=== PATIENT | female | born 1990 | race Caucasian/White ===

== ENCOUNTER → 2019-10-04 10:48 | Outpatient (CLI) | payer OTHER, MEDICAID, SELFPAY ==
--- NOTE | 2019-10-04 | DI.US.S_ITS ---
PROCEDURE: US OB <= 14 WEEKS FETUS INDICATIONS: SIZE AND DATES OUTSIDE/PRIOR DATING DATA: Last menstrual period (LMP): 08/11/19. LMP-based estimated date of delivery (RODERICK): 05/17/20. First dating scan (date and location): 10/04/19. Estimated date of delivery (RODERICK) from first dating scan: 05/14/20. TECHNIQUE: Real-time scanning was performed of the fetus and maternal pelvic organs, with image documentation. Endovaginal scanning was also performed to better visualize the fetus and maternal ovaries. COMPARISON: None. FINDINGS: Embryo: Early intrauterine identified. heart rate measured at 182 beats per minute. crown-rump length measures 1.7 cm corresponding to ultrasound estimated gestational age of 8 weeks 1 day. Measurement variability in dating: +/- 4 weeks by LMP, +/- 7 days by mean sac diameter (use before 6 weeks gestation if crown-rump length not able to be measured), +/- 5 days by crown-rump length (up to 8 weeks 6 days gestation), +/- 7 days by crown-rump length (up to 13 weeks 6 days gestation). Maternal organs: Right corpus luteal cyst noted. Left ovary is not visualized and cannot be evaluated. Limited images through the kidneys demonstrate no hydronephrosis. IMPRESSION: Single living intrauterine with ultrasound estimated gestational age of 8 weeks 1 day corresponding to ultrasound RODERICK of 05/14/2020. Dictated by: Cindy Dorsey MD, PhD on 10/04/2019 at 12:13 Approved by: Cindy Dorsye MD, PhD on 10/04/2019 at 12:15
== END ==
PROVIDERS: PCP Family Medicine; Referring Provider Family Medicine; Visit Provider Family Medicine
DX: Z34.91 Encounter for supervision of normal pregnancy, unspecified, first trimester (principal); Z3A.08 8 weeks gestation of pregnancy
CPT/HCPCS: 76801

== ENCOUNTER → 2019-12-30 13:30 | Outpatient (CLI) | payer OTHER, MEDICAID, SELFPAY ==
--- NOTE | 2019-12-30 | DI.US.S_ITS ---
PROCEDURE: US OB >= 14 WEEKS FETUS INDICATIONS: 20 WEEK SCAN OUTSIDE/PRIOR DATING DATA: Last menstrual period (LMP): 08/11/19. LMP-based estimated date of delivery (RODERICK): 05/17/20. First dating scan (date and location): 10/04/19. Estimated date of delivery (RODERICK) from first dating scan: 05/14/20. TECHNIQUE: Real-time scanning was performed of the fetus, with image documentation and biometric measurements. Endovaginal scanning: Not performed COMPARISON: None. FINDINGS: General: A single living intrauterine gestation is present. Presentation: Breech Placenta: Placental position is anterior, without previa. Amniotic fluid index: 11.9 cm, normal range is 5-24 cm. heart rate: 153 beats per minute. Maternal cervical canal: 4.3 cm long. Normal lower limit is 2.5 cm. biometrics: Biparietal diameter: 4.4 cm, 19 weeks, 3 days Head circumference: 17.5 cm, 20 weeks, zero day Abdominal circumference: 15.5 cm, 20 weeks, 4 days Femur length: 3.5 cm, 21 weeks, one day Estimated gestational age from initial scan: 20 weeks, 4 days. Composite gestational age from present scan: 20 weeks, 3 days Estimated weight and percentile: 375 g, 55%. Measurement variability for biometric dating: +/- 7 days from 14 weeks to 15 weeks 6 days gestation, +/- 10 days from 16 weeks to 21 weeks 6 days gestation, +/- 2 weeks from 22 weeks to 27 weeks 6 days gestation, +/- 3 weeks for 28 weeks gestation or later. weight reference: 4500 g or EFW >90/95% is considered macrosomia or large for gestational age. EFW <10% is small for gestational age. EFW 5% or less is considered intra-uterine growth restriction. Anatomic survey: Neuro: Ventricles are non-dilated at less than 10 mm. Cisterna magna is normal at 3-11 mm. Cerebellum is normal in size and morphology. Nuchal skin fold: Normal at less than 6 mm between 14-21 weeks gestational age. Face: Nose and lips, facial profile are normal. Spine: No evidence for spina bifida. Heart: 4-chambered heart is present, with normal ventricular outflow tracts. Diaphragm: Diaphragm is intact. Stomach: Left-sided stomach is present. Kidneys: No hydronephrosis. Normal is less than 5 mm in 2nd trimester, less than 7 mm in 3rd trimester. Cord: 3-vessel cord has orthotopic insertion. Bladder: Normal in size. Extremities: All 4 extremities identified. IMPRESSION: 1. Single live intrauterine with fetus in breech presentation. Normal amount of amniotic fluid. heart rate is 153 beats per minute. Normal growth. 2. Normal anatomic survey. Dictated by: Frandy Kilpatrick M.D. on 12/30/2019 at 15:50 Approved by: Frandy Kilpatrick M.D. on 12/30/2019 at 15:55
== END ==
PROVIDERS: PCP Family Medicine; Referring Provider Family Medicine; Visit Provider Family Medicine
DX: Z36.89 Encounter for other specified antenatal screening (principal); Z3A.20 20 weeks gestation of pregnancy
CPT/HCPCS: 76811

== ENCOUNTER → 2020-03-26 14:04 | Outpatient (CLI) | payer OTHER, MEDICAID, SELFPAY ==
--- NOTE | 2020-03-26 | DI.US.S_ITS ---
PROCEDURE: US OB LIMITED INDICATIONS: GROWTH OUTSIDE/PRIOR DATING DATA: Last menstrual period (LMP): 08/11/19. LMP-based estimated date of delivery (RODERICK): 05/17/20. First dating scan (date and location): 10/04/19. Estimated date of delivery (RODERICK) from first dating scan: 05/14/20. TECHNIQUE: Real-time scanning was performed of the fetus, with image documentation and biometric measurements. Endovaginal scanning: Not performed COMPARISON: None. FINDINGS: General: A single living intrauterine gestation is present. Presentation: Vertex. Placenta: Placental position is anterior, without previa. Amniotic fluid index: 16.6 cm cm, normal range is 5-24 cm. heart rate: 144 beats per minute. Maternal cervical canal: 4.2 cm long. Normal lower limit is 2.5 cm. biometrics: Biparietal diameter: 8.2 cm, correlating with approximately 32 weeks and 6 days Head circumference: 30.0 cm, correlating with approximately 33 weeks and 2 days Abdominal circumference: 28.6 cm, correlating with approximately 32 weeks and 4 days Femur length: 6.4 cm, correlating with approximately 32 weeks and 6 days Estimated gestational age from initial scan: not applicable. Composite gestational age from present scan: 32 weeks and 6 days Estimated weight and percentile: 2046 g which correlates with the 34th percentile based off gestational age. Measurement variability for biometric dating: +/- 7 days from 14 weeks to 15 weeks 6 days gestation, +/- 10 days from 16 weeks to 21 weeks 6 days gestation, +/- 2 weeks from 22 weeks to 27 weeks 6 days gestation, +/- 3 weeks for 28 weeks gestation or later. weight reference: 4500 g or EFW >90/95% is considered macrosomia or large for gestational age. EFW <10% is small for gestational age. EFW 5% or less is considered intra-uterine growth restriction. Other: No abnormalities visualized in the imaged portions of the fetus. IMPRESSION: Single living intrauterine gestation with an estimated sonographic gestational age of approximately 32 weeks and 6 days. Estimated weight of approximately 2046 g which correlates with the 34th percentile based off gestational age. Expected interval growth has occurred. Dictated by: Nba Jauregui M.D. on 03/27/2020 at 14:35 Approved by: Nba Jauregui M.D. on 03/27/2020 at 14:39
== END ==
PROVIDERS: PCP Family Medicine; Referring Provider Family Medicine; Visit Provider Family Medicine
DX: Z36.89 Encounter for other specified antenatal screening; Z3A.32 32 weeks gestation of pregnancy
CPT/HCPCS: 76815

== ENCOUNTER → 2020-04-18 11:48 | Outpatient (ROUT) | payer OTHER, MEDICAID, SELFPAY | PROVIDERS: PCP Family Medicine; Visit Provider Family Medicine | DX: Z34.90 Encounter for supervision of normal pregnancy, unspecified, unspecified trimester (principal) | CPT/HCPCS: 87081; 87147 ==

== ENCOUNTER → 2020-04-20 14:31 | Outpatient (CLI) | payer OTHER, MEDICAID, SELFPAY ==
--- NOTE | 2020-04-20 | DI.US.S_ITS ---
PROCEDURE: US OB LIMITED INDICATIONS: EFW OUTSIDE/PRIOR DATING DATA: Last menstrual period (LMP): 08/11/19. LMP-based estimated date of delivery (RODERICK): 05/17/20 . First dating scan (date and location): 10/04/19 . Estimated date of delivery (RODERICK) from first dating scan: 05/14/20 . TECHNIQUE: Real-time scanning was performed of the fetus, with image documentation and biometric measurements. Endovaginal scanning: Not needed. COMPARISON: [facility], OB LIMITED, 03/26/2020, 14:09. FINDINGS: General: A single living intrauterine gestation is present. Presentation: Vertex. Placenta: Placental position is anterior , without previa. 24.0 Amniotic fluid index: Normal cm, normal range is 5-24 cm. heart rate: 136 beats per minute. Maternal cervical canal: 3.8 cm long. Normal lower limit is 2.5 cm. biometrics: Biparietal diameter: 8.6 cm, 34 weeks 5 days Head circumference: 31.7 cm, 35 weeks 5 days Abdominal circumference: 32.1 cm, 36 weeks 0 days Femur length: 7.0 cm, 36 weeks 0 days Estimated gestational age from initial scan: 36 weeks 4 days. Estimated weight and percentile: 2778 g, 34th percentile Measurement variability for biometric dating: +/- 7 days from 14 weeks to 15 weeks 6 days gestation, +/- 10 days from 16 weeks to 21 weeks 6 days gestation, +/- 2 weeks from 22 weeks to 27 weeks 6 days gestation, +/- 3 weeks for 28 weeks gestation or later. weight reference: 4500 g or EFW >90/95% is considered macrosomia or large for gestational age. EFW <10% is small for gestational age. EFW 5% or less is considered intra-uterine growth restriction. Other: Not applicable. IMPRESSION: Appropriate interval growth, no sign of oligohydramnios. Appropriate weight for age at 34th percentile. Normal amniotic fluid volume. Dictated by: Diego Argueta M.D. on 04/20/2020 at 16:23 Approved by: Diego Argueta M.D. on 04/20/2020 at 16:26
== END ==
PROVIDERS: PCP Family Medicine; Referring Provider Family Medicine; Visit Provider Family Medicine
DX: Z36.89 Encounter for other specified antenatal screening (principal); Z3A.36 36 weeks gestation of pregnancy
CPT/HCPCS: 76815

== ENCOUNTER 2020-05-03 17:13 | Inpatient (IN) | payer OTHER, MEDICAID, SELFPAY ==
--- NOTE | 2020-05-03 19:02 | P.HPOB_ITS ---
OB HPI Date/Time Date of admission: 05/03/20 Date Patient Seen: 05/03/20 Time Patient Seen: 19:02 History of Present Condition Chief complaint: OBSERVATION OF LABOR : 1 Para: 0 Estimated Date of Delivery: 05/17/20 Estimated Gestational Age (weeks): 38 Narrative: Marla Victor is a 29 year old female with EDC of 820 giving here an EEG a of 38 weeks. No other issues. Good dates. is been relatively benign she had a episode of depression was started on sertraline. She has done well. She has a history of asthma has not had any issues. She had an abnormal look good 2s test. We had discussed starting metformin but she has done an excellent job of no weight gain and diet control. Numbers have been excellent. Has not needed any other issues. Ultrasound showed adequate growth and last ultrasound was in 6-1/2 to 7 lb. No other changes. Patient last night 10 30 ruptured with clear fluid did not present to clinic until around 230 issues GBS positive. She has had no fevers or other change Indications Other reason(s) for admission: rupture of membranes History of Present care: good care Dating criteria: LMP confirmed by 1st trimester US Ultrasounds: normal mid trimester US Obstetrical complications: gestational diabetes Medical complications: respiratory Preadmission Labs Blood type: O (+) positive -: Antibody screen: negative, Cystic fibrosis screen: unknown, GBS status: positive, HBsAG: negative, HIV: negative, HSV 1: negative, HSV 2: negative and RPR/VDLR: negative -: Chlamydia screen: not detected and Gonorrhea screen: not detected -: Rubella: not immune and Varicella: not immune HCT: 34.4 HCAB: negative PAP: Normal Sequential screen: normal 1 hr GTT: 196 Evaluation Evaluation Baseline heart rate: 140 Variability: Marked (>25) monitor accelerations: Present monitor decelerations: Absent Contraction Frequency (minutes): 3 Uterine Contraction Intensity: Moderate Category of Tracing: Reactive Cervical dilation (cm): 1 Cervical effacement (%): 70 station: -1 Non-invasive Membranes Rupture Test: positive [facility] Social History Smoking Status: Never smoker Meds Home Medications and Allergies Home Medications Medication Instructions Recorded Confirmed Type albuterol sulfate [Ventolin HFA] #0 10/26/17 History alprazolam #0 10/26/17 History cetirizine [Zyrtec] #0 10/26/17 History clobetasol [Temovate] #0 10/26/17 History diphenhydramine HCl [Benadryl #0 10/26/17 History Allergy] ketoconazole #0 10/26/17 History meclizine #0 10/26/17 History omeprazole 20 mg PO HS #0 10/26/17 History verapamil 180 mg PO QDAY #30 tab 11/18/17 Rx verapamil 180 mg 24 hr 180 mg PO DAILY #30 cap 05/19/18 Rx capsule,extended release Allergies Allergy/AdvReac Type Severity Reaction Status Date / Time tacrolimus [TACROLIMUS] Allergy Severe unknown Verified 05/19/18 13:38 Penicillins [PENICILLINS] Allergy Mild HIVES Verified 05/19/18 13:38 azithromycin [AZITHROMYCIN] Allergy Unknown Verified 05/19/18 13:38 cefaclor [From CECLOR] Allergy Unknown Verified 05/19/18 13:38 hydrocortisone Allergy Unknown Verified 05/19/18 13:38 [HYDROCORTISONE] Sulfa (Sulfonamide Allergy Unknown Verified 05/19/18 13:38 Antibiotics) [SULFA (SULFONAMIDE ANTIBIOTICS)] Review of Systems Review of Systems ROS: Yes All systems reviewed with the patient and are negative except as otherwise documented Exam Vital Signs (past 8 hours): alert smiling female in no acute distress lungs are clear heart regular rate and rhythm abdomen is vertex sterile speculum exam showed gross rupture with nitrazine positive. Extremities without cyanosis clubbing edema Assessment and Plan Assessment and Plan Assessment and Plan narrative: 38 weeks rupture approximately 21 hours. Will start antibiotics. GBS positive. Will see what her contraction pattern is over the next couple hours. Will recheck if not will add Pitocin. Epidural if desired. Sugars we will be following. But appears to be normal at this time. Nebulizer if needed.
[2020-05-03] MEDS: CLINDAMYCIN 900 MG/50 ML PIGGYBACK 50 MG IV (19:30)
[2020-05-03] MEDS: LACTATED RINGERS 1,000 ML 125 ML IV (19:41)
[2020-05-03 19:47] LABS: Add Manual Diff / Slide Review NO; Basophils Absolute Auto 100 /uL (0-100); Basophils Percent Auto 0.5 % (0-2); Eosinophils Absolute Auto 0 /uL (0-450); Hematocrit 37.8 % (36-46); Hemoglobin 12.7 g/dL (12.0-16.0); Lymphocytes Absolute Auto 2000 /uL (1100-4500); Lymphocytes Percent Auto 8.4 % (25-40); Mean Corpuscular HGB Conc 33.6 % (30-36); Mean Corpuscular Hemoglobin 30.1 PG (26-34); Mean Corpuscular Volume 89.6 fL (80-100); Monocytes Absolute Auto 500 /uL (0-900); Monocytes Percent Auto 2.2 % (3-14); Neutrophils Absolute Auto 21100 /uL (1500-7000); Neutrophils Percent Auto 88.9 % (50-75); Platelet Count 399 X10^3/uL (150-400); Red Blood Cell Count 4.22 X10^6/uL (4.0-5.2); Red Cell Distribution Width 13.7 % (11.6-14.8); White Blood Cell Count 23.7 X10^3/uL (4.5-11.0)
[2020-05-03 19:47] LABS: COVID19 -Nasal RAPID Negative (Negative)
[2020-05-03 20:17] VITALS: BP 105/69
--- NOTE | 2020-05-04 00:26 | PM.OBPNLAB ---
Date/Time Date Patient Seen: 05/04/20 Time Patient Seen: 00:00 Pain Control Comments: Patient requests epidural Pelvic Exam Dilation (cm): 3 Effacement (%): 100 station: 0 Amniotic membrane status: Intact Contractions Contractions on admission: regular Monitor mode: External Contraction intensity: Moderate Status status: Category l Assessment and Plan Plan: continuous present management
[2020-05-04] MEDS: FENT 2MCG/ML BUPIV 0.125% EPI 200 MCG/100 ML PLAST..BAG 10 MCG EPIDURAL ×2 (00:55→08:20)
[2020-05-04] MEDS: LACTATED RINGERS 1,000 ML 125 ML IV ×2 (02:20→07:33)
[2020-05-04] MEDS: CLINDAMYCIN 900 MG/50 ML PIGGYBACK 50 MG IV ×2 (02:54→11:25)
[2020-05-04] MEDS: OXYTOCIN PREMIX 30 UNIT/500 ML PLAST..BAG IV (02:59)
[2020-05-04 08:29] VITALS: BP 130/78; PULSE 98; RESP 16; TEMP 37.1
--- NOTE | 2020-05-04 09:14 | PM.OBPNLAB ---
Date/Time Date Patient Seen: 05/04/20 Time Patient Seen: 09:15 Pain Control Pain control: epidural Comments: Having some pain on right side. Pelvic Exam Dilation (cm): 7 Effacement (%): 100 station: +1 Amniotic membrane status: Ruptured Contractions Contractions on admission: regular Monitor mode: External Pitocin rate (mU/min): 6 Contraction pattern: Regular Contraction intensity: Moderate Status status: Category l Assessment and Plan Assessment: active labor Plan: continuous present management Comments: Prepare for . Sugar is 110. Will recheck in 1 hour in hourly until delivery. Would like to have it under 105. Certainly if increasing will need to make some changes. Addition of insulin. Progression seems to be good. Will recheck in 2-3 hours. Will discuss with Anesthesia about improving pain control. Otherwise doing well
[2020-05-04] MEDS: CALCIUM CARBONATE 500 MG TAB PO (11:24)
--- NOTE | 2020-05-04 11:46 | PM.OBPNLAB ---
Date/Time Date Patient Seen: 05/04/20 Time Patient Seen: 11:46 Pain Control Pain control: epidural Pelvic Exam Dilation (cm): 9 Effacement (%): 100 station: +1 Amniotic membrane status: Ruptured Comments: Mild meconium Contractions Monitor mode: External Pitocin rate (mU/min): 6 Contraction pattern: Regular Contraction intensity: Moderate Status status: Category l Assessment and Plan Assessment: active labor Plan: continuous present management Comments: Repair for . Sugar was under 100.
--- NOTE | 2020-05-04 14:34 | PM.OBPRVD ---
Events: Prolonged Rupture of Membrane and Meconium Stained Fluid Labor & Delivery Delivery date: 05/04/20 Delivery augmentation: pitocin Delivery monitor: external FHT Route of delivery: L&D Laceration Description: Periurethral - 1st Degree and Perineal - 2nd Degree Delivery repair: vicryl Estimated blood loss (mL): 250 Anesthesia type: Epidural Complications: None Narrative: Mom presented with rupture. GBS positive. Had been ruptured approximately 14 hours of presentation. She was began on clindamycin. She had not had a fever. Good movement. heart monitor was reactive. She was 2 cm at presentation. Contractions were pretty consistent. Through all of for stage patient heart monitor was category 1. With no other changes. Pitocin was began at approximately 3 in the morning. Patient had excellent contractions and progressed at normal speed. For stage ended with no major issues. We getting and second-stage which for 1st was relatively short period mom was excellent pusher. Epidural was excellent and we delivered OA over his 1st degree periurethral tear and small second-degree perineal tear. Child had a nuchal cord x1. Reduced on the perineum. While he had what appeared to be light meconium throughout her last 10 hours a labor large amount of meconium fluid was delivered after head and body. Blood sugar was excellent mostly in the 90s had 1 at 1:10 a.m.. But had recovered to 90s. All until the last right before delivery which was 117. Child was delivered up on down mom's abdomen. No resuscitation was required. Child with excellent color tone and heart rate. After awaiting 2-3 minutes cord was clamped and cut by dad. Three-vessel cord. Placenta then delivered spontaneous intact. Evaluation of cervix and vaginal mucosa showed no significant tears. Repair of second-degree midline perineal tear was done with running 3 0 Vicryl. EBL 250 cc. Mother and infant were in stable condition. Routine evaluation. Routine care.
[2020-05-04] MEDS: DERMOPLAST SPRAY 20% 60 ML 1 SPRAY TOP (15:56)
[2020-05-05 06:56] LABS: Add Manual Diff / Slide Review NO; Basophils Absolute Auto 100 /uL (0-100); Basophils Percent Auto 0.3 % (0-2); Eosinophils Absolute Auto 0 /uL (0-450); Eosinophils Percent Auto 0.1 % (2-4); Hematocrit 30.6 % (36-46); Hemoglobin 10.4 g/dL (12.0-16.0); Lymphocytes Absolute Auto 3400 /uL (1100-4500); Mean Corpuscular Hemoglobin 30.7 PG (26-34); Mean Corpuscular Volume 90.2 fL (80-100); Monocytes Absolute Auto 1300 /uL (0-900); Monocytes Percent Auto 5.6 % (3-14); Neutrophils Absolute Auto 18000 /uL (1500-7000); Platelet Count 281 X10^3/uL (150-400); Red Blood Cell Count 3.39 X10^6/uL (4.0-5.2); Red Cell Distribution Width 13.5 % (11.6-14.8); White Blood Cell Count 22.8 X10^3/uL (4.5-11.0)
--- NOTE | 2020-05-05 11:07 | PM.OBDS.1 ---
Discharge Providers Provider Date of admission: 05/03/20 17:13 Discharge Date: 05/05/20 Primary care physician: Refugio Hgaen MD Consults: 05/05/20 14:20 Consult to Medical Care Administrator Routine Comment: Discharge provider: Alon López MD Summary Peripartum Data Infant Delivery Method: Natural Vaginal Laceration Description: Periurethral - 1st Degree and Perineal - 2nd Degree Episiotomy description: None complications: none Status at Discharge Cognitive/behavioral status at discharge: oriented Functional status at discharge: independent ambulation Overall status at discharge: patient is not back to baseline Time Spent with Patient Time attestation: Total time spent providing and/or coordinating discharge services: Time spent: Greater than 30 minutes Specific discharge activities: Patient overall has done well. No pain. No major issues. Breast-feeding seems to be going well. Having no nipple pain. Has not had any significant bleeding. Mostly doing well. Will be discharged today. Routine Education and breast discussion. Questions answered. Signs of infection discussed. Will follow blood sugar and apparently and at 6 weeks. No other changes. Objective Labs Result Diagrams: 05/05/20 06:41 Labs: Laboratory Results - last 24 hr 05/05/20 06:41 WBC 22.8 H RBC 3.39 L Hgb 10.4 L Hct 30.6 L MCV 90.2 MCH 30.7 MCHC 34.0 RDW 13.5 Plt Count 281 Neut % (Auto) 79.0 H Lymph % (Auto) 15.0 L Castro % (Auto) 5.6 Eos % (Auto) 0.1 L Baso % (Auto) 0.3 Neut # (Auto) 54789 H Lymph # (Auto) 3400 Castro # (Auto) 1300 H Eos # (Auto) 0 Baso # (Auto) 100 Exam Narrative Exam Narrative: Alert smiling female in no acute distress. Mucous membranes moist. Lungs are clear. Heart regular rate and rhythm. Uterus is firm at umbilicus. Nontender. Extremities are normal. Discharge Plan Discharge Plan Patient Disposition: Home Discharge orders & Medications Prescriptions: New sertraline [Zoloft] 50 mg Tablet 100 mg PO BEDTIME Qty: 30 RF: 0 Continued meclizine 25 MG tablet 25 mg PO PRN PRN (Reason: Vertigo) Qty: 0 RF: 0 albuterol sulfate [Ventolin HFA] 90 MCG/PUFF HFA aerosol inhaler 2 puff inhalation DIRECTED PRN (Reason: Wheezing) Qty: 0 RF: 0 omeprazole 20 MG tablet,delayed release (DR/EC) 20 mg PO HS Qty: 0 RF: 0 Zyrtec 10 MG tablet,disintegrating 10 mg PO DAILY Qty: 0 RF: 0 Discontinued diphenhydramine HCl [Benadryl Allergy] 25 MG tablet 25 mg PO PRN PRN (Reason: Itching) Qty: 0 RF: 0 Singulair 1 tab PO DAILY RF: 0 Follow up/Referrals: Refugio Hagen MD [Primary Care Provider] - Alon López MD [Physician] - 6 Weeks Discharge Health Status Multidrug resistant organism: No MDRO Diet/Activity/Treatments Diet: Diet as Tolerated Activity: no sexual activity for six weeks. slow increase in activity listen to your body Skin/Wound/Dressing Care Report to your healthcare provider any signs of infection, such as:: chills, fever, increased pain, unusual drainage and unusual redness Discharge Data Primary Care Provider: Refugio Hagen
== END 2020-05-05 17:35 | disposition home or self-care (01) | DRG 560 ==
PROVIDERS: Admitting Provider Family Medicine; PCP Family Medicine; Referring Provider Family Medicine; Visit Provider Family Medicine
DX: O24.420 Gestational diabetes mellitus in childbirth, diet controlled (principal); O99.824 Streptococcus B carrier state complicating childbirth; O42.02 Full-term premature rupture of membranes, onset of labor within 24 hours of rupture; Z3A.38 38 weeks gestation of pregnancy; Z37.0 Single live birth; O70.1 Second degree perineal laceration during delivery; O77.0 Labor and delivery complicated by meconium in amniotic fluid; O69.81X0 Labor and delivery complicated by cord around neck, without compression, not applicable or unspecified; Z11.59 Encounter for screening for other viral diseases
CPT/HCPCS: 01967; 36415; 59050; 82962; 85025; 86850; 86900; 86901; 87635; G0379; J2590

== ENCOUNTER 2020-11-25 15:49 | Emergency (ER) | payer OTHER, MEDICAID, SELFPAY ==
[2020-11-25 15:58] VITALS: BP 132/78; PULSE 94; RESP 16; TEMP 37.1; O2SAT 96
--- NOTE | 2020-11-25 16:03 | ED_ITS ---
HPI - General Adult General Chief complaint: Extremity Injury, Lower Stated complaint: LEFT FOOT PAIN// Time Seen by Provider: 11/25/20 15:56 Source: patient Mode of arrival: Wheelchair Limitations: no limitations History of Present Illness HPI narrative: Patient is an otherwise healthy 30-year-old female here for evaluation of left foot injury. Patient states that approximately 1 hour prior to arrival she tripped over a moving box and twisted her left ankle. She had immediate swelling of the outside of her foot with tenderness around this area. She reports no other injuries from the event. Has not tried anything for it. She does state that the swelling has improved somewhat since the onset. No prior injuries. Related Data Home Medications Medication Instructions Recorded Confirmed Zyrtec 10 mg PO DAILY #0 10/26/17 05/03/20 albuterol sulfate [Ventolin HFA] 2 puff INHALATION DIRECTED PRN 10/26/17 05/03/20 #0 meclizine 25 mg PO PRN PRN #0 10/26/17 05/03/20 omeprazole 20 mg PO HS #0 10/26/17 05/03/20 Previous Rx's Medication Instructions Recorded sertraline [Zoloft] 100 mg PO BEDTIME #30 tab 05/05/20 Allergies Allergy/AdvReac Type Severity Reaction Status Date / Time tacrolimus [TACROLIMUS] Allergy Severe unknown Verified 11/25/20 15:58 Penicillins [PENICILLINS] Allergy Mild HIVES Verified 11/25/20 15:58 azithromycin [AZITHROMYCIN] Allergy Unknown Verified 11/25/20 15:58 cefaclor [From CECLOR] Allergy Unknown Verified 11/25/20 15:58 hydrocortisone Allergy Unknown Verified 11/25/20 15:58 [HYDROCORTISONE] Sulfa (Sulfonamide Allergy Unknown Verified 11/25/20 15:58 Antibiotics) [SULFA (SULFONAMIDE ANTIBIOTICS)] Review of Systems Constitutional Constitutional: Denies fever(s) Musculoskeletal Comments: Left foot pain Integumentary/Breasts Comments: Bruising the outside left foot Hematologic/Lymphatic On Anticoagulants: No Allergic/Immunologic Allergic/Immunologic: Denies urticaria Patient History Surgical History No pertinent past surgical history Social History Smoking Status: Never smoker Smoking Status: Never smoker Exam Initial Vital Signs Initial Vital Signs: Vital Signs Temperature 98.8 F 11/25/20 15:58 Pulse Rate 94 H 11/25/20 15:58 Respiratory Rate 16 11/25/20 15:58 Blood Pressure 132/78 11/25/20 15:58 Pulse Oximetry 96 11/25/20 15:58 Const General: cooperative and healthy appearing Cardio Pulses: dorsalis pedis present on the left Skin Other: Patient with bruising on the lateral aspect of the left foot over the base of the 5th. Neuro Sensory Exam: no sensory deficits noted Extrem Other: Left knee is unremarkable, left proximal fibula is unremarkable. Achilles tendons unremarkable. Medial aspect of the left foot is unremarkable. Medial and lateral malleolus has no tenderness. Does have tenderness palpation along the base of the 5th metatarsal. Toes unremarkable. Psych Appearance: grossly normal and well kempt Procedures Orthopedic Splinting/Casting Injury #1: Side: left Lower Extremity Injury Location: foot Lower Extremity Immobilizer: Yunier wrap Other Orthopedic Equipment: crutches Post splinting neuro exam: intact Post splinting vascular exam: intact Placed by: Nursing Course Orders Ordered: ED Orders 11/25/20 16:02 XR foot LT min 3V Stat Vital Signs Vital signs: Vital Signs - 8 hr 11/25/20 15:58 Temperature 98.8 F Pulse Rate 94 H Respiratory Rate 16 Blood Pressure 132/78 Pulse Oximetry 96 Medical Decision Making Imaging Data Extremity x-ray #1: Radiologist's Impression: [address] [id number] ReportSigned Patient: Marla Victor LMR#: [id number]: 1990Acct:[id number]/Sex: 30 / FDate of Service: 11/25/20Loc: EDAccession Number: [id number] Procedure: XR foot LT min 3V Ordering Provider: Refugio Khan D.O. PROCEDURE: XR FOOT LT MIN 3V INDICATIONS: Base of 5th pain after injury. TECHNIQUE: 3 views of the foot were acquired. COMPARISON: None. FINDINGS: Bones: No fractures or dislocations. No suspicious bony lesions. Soft tissues: No tibiotalar joint effusion. Achilles tendon appears normal. IMPRESSION: No acute fracture. No osseous lesion. If symptoms and/or clinical suspicion for pathology persist, further assessment with repeat, or advanced imaging ( e.g., CT, MRI, or bone scan) may be helpful for further assessment. Dictated by: Jermaine Ely M.D. on 11/25/2020 at 15:17 Approved by: Jermaine Ely M.D. on 11/25/2020 at 15:17 [facility] Narrative Medical decision making narrative: Patient is neurovascularly intact. There are no fractures on the x-rays. She does have a small hematoma on the outside of her left foot. She states that she cannot put weight on it because of the discomfort so she was given Yunier bandage him placed on crutches. She was given return precautions and follow-up instructions. She expressed understanding and agreement. Discharge Plan Departure Patient Disposition: Home Clinical Impression: Sprain of foot, left Instructions: How to Use Crutches, DI for Foot Sprain, How to Apply an Elastic Wrap on Ankle Activity Restrictions/Additional Instructions: There were no fractures on the x-rays that you can walk on your left foot as tolerated. Use the Yunier bandage and crutches for comfort. Be sure to keep your foot elevated in place ice over the area. Contact your primary provider for follow-up. Prescriptions: No Action meclizine 25 MG tablet 25 mg PO PRN PRN (Reason: Vertigo) Qty: 0 RF: 0 albuterol sulfate [Ventolin HFA] 90 MCG/PUFF HFA aerosol inhaler 2 puff inhalation DIRECTED PRN (Reason: Wheezing) Qty: 0 RF: 0 omeprazole 20 MG tablet,delayed release (DR/EC) 20 mg PO HS Qty: 0 RF: 0 Zyrtec 10 MG tablet,disintegrating 10 mg PO DAILY Qty: 0 RF: 0 sertraline [Zoloft] 50 mg Tablet 100 mg PO BEDTIME Qty: 30 RF: 0
[2020-11-25 17:10] VITALS: BP 135/60; PULSE 68; RESP 14; O2SAT 99
== END 2020-11-25 16:50 | disposition home or self-care (01) ==
PROVIDERS: Emergency Provider Emergency Medicine
DX: S93.602A Unspecified sprain of left foot, initial encounter (principal); W18.09XA Striking against other object with subsequent fall, initial encounter
CPT/HCPCS: 73630; 99283

== ENCOUNTER → 2020-12-26 15:55 | Outpatient (CLI) | payer OTHER, MEDICAID, SELFPAY ==
--- NOTE | 2020-12-26 15:59 | DI.RAD.S_ITS ---
PROCEDURE: XR FOOT LT MIN 3V INDICATIONS: LT FOOT PAIN TECHNIQUE: 3 views of the foot were acquired. COMPARISON: [facility], CR, XR FOOT LT MIN 3V, 11/25/2020, 16:04. FINDINGS: Bones: No fractures or dislocations. No suspicious bony lesions. Soft tissues: No tibiotalar joint effusion. Achilles tendon appears normal. IMPRESSION: No source of pain is found over the left foot. Dictated by: Diego Argueta M.D. on 12/26/2020 at 17:28 Approved by: Diego Argueta M.D. on 12/26/2020 at 17:29
== END ==
PROVIDERS: PCP Family Medicine; Referring Provider Family Medicine; Visit Provider Family Medicine
DX: M79.672 Pain in left foot (principal)
CPT/HCPCS: 73630

== ENCOUNTER → 2022-11-03 14:50 | Outpatient (ROUT) | payer OTHER, MEDICAID, SELFPAY ==
[2022-11-03 15:41] LABS: COVID19 -Nasal RAPID Negative (Negative)
== END ==
PROVIDERS: PCP Family Medicine; Visit Provider Family Medicine
DX: J45.909 Unspecified asthma, uncomplicated (principal)
CPT/HCPCS: 87635

== ENCOUNTER → 2022-12-25 17:42 | Outpatient (ROUT) | payer OTHER, MEDICAID, SELFPAY ==
[2022-12-25 18:26] LABS: Influenza A - CEPHEID Flu A NEGATIVE (NEGATIVE); Influenza B - CEPHEID Flu B NEGATIVE (NEGATIVE); Respiratory Syncytial Virus Negative (Negative)
[2022-12-25 19:19] LABS: COVID-19 CEPHEID 4-PLEX PCR Negative (Negative)
== END ==
PROVIDERS: PCP Family Medicine; Visit Provider Family Medicine
DX: Z20.822 Contact with and (suspected) exposure to COVID-19 (principal)
CPT/HCPCS: 0241U